=== PATIENT | male | born 1985 | race Hispanic/Latino ===

== ENCOUNTER 2020-01-05 16:59 | Emergency (ER) | payer OTHER ==
[2020-01-05] MEDS ORDERED: LIDOCAINE HCL 1% 20 ML VIAL ONE (18:09)
[2020-01-05] MEDS ORDERED: PREDNISONE 20 MG TABLET ONE (18:09)
[2020-01-05] MEDS ORDERED: ALBUTEROL INHALER 90MCG/INH IH ONE (18:09)
[2020-01-05 18:20] LABS: BASOPHILS % (AUTO) 0.7 % (0.0-5.0); EOSINOPHILS % (AUTO) 1.6 % (0.0-8.0); HEMATOCRIT 46.5 % (42-54); LYMPHOCYTES % (AUTO) 7.7 % (21.0-51.0); MEAN CORPUSCULAR HEMOGLOBIN 29.1 pg (27.0-33.0); MEAN CORPUSCULAR HGB CONC 34.4 g/dL (32.0-36.0); MEAN CORPUSCULAR VOLUME 84.7 fL (79-99); MONOCYTES % (AUTO) 4.5 % (3.0-13.0); PLATELET COUNT (AUTO) 228 K/uL (130-400); RED BLOOD CELL COUNT(AUTO) 5.49 MIL/uL (4.50-6.20); RED CELL DISTRIBUTION WIDTH 12.6 % (11.0-15.5); WHITE BLOOD COUNT (AUTO) 13.3 K/uL (4.8-10.8)
[2020-01-05 18:49] LABS: CREATININE 1.4 mg/dL (0.5-1.5); POTASSIUM 3.8 mmol/L (3.5-5.1)
[2020-01-05 18:54] LABS: BILIRUBIN,TOTAL 0.2 mg/dL (0.2-1.0); TOTAL PROTEIN, SERUM 5.9 g/dL (6.0-8.3)
== END 2020-01-05 19:50 | disposition home or self-care (01) ==
LOC: EDH 16:59
DX: J20.9 Acute bronchitis, unspecified (principal); I80.8 Phlebitis and thrombophlebitis of other sites; Z20.828 Contact with and (suspected) exposure to other viral communicable diseases; J45.909 Unspecified asthma, uncomplicated
CPT/HCPCS: 36415; 71045; 80053; 84484; 85025; 87040 ×2; 87426; 87804 ×2; 93005; 99285; U0003

== ENCOUNTER 2020-01-09 00:43 | Inpatient (IN) | payer SELFPAY ==
[~2020-01-09] VITALS: Ht 167 cm; Wt 73.5 kg
[2020-01-09 01:05] LABS: BASOPHILS % (AUTO) 0.8 % (0.0-5.0); EOSINOPHILS % (AUTO) 2.5 % (0.0-8.0); HEMATOCRIT 43.8 % (42-54); LYMPHOCYTES % (AUTO) 21.8 % (21.0-51.0); MEAN CORPUSCULAR HGB CONC 34.2 g/dL (32.0-36.0); MEAN CORPUSCULAR VOLUME 84.7 fL (79-99); MONOCYTES % (AUTO) 10.7 % (3.0-13.0); NEUTROPHILS % (AUTO) 63.6 % (40.0-77.0); PLATELET COUNT (AUTO) 226 K/uL (130-400); RED BLOOD CELL COUNT(AUTO) 5.17 MIL/uL (4.50-6.20); RED CELL DISTRIBUTION WIDTH 12.6 % (11.0-15.5); WHITE BLOOD COUNT (AUTO) 8.5 K/uL (4.8-10.8)
[2020-01-09 01:13] LABS: INR 0.88 (0.85-1.15); PARTIAL THROMBOPLASTIN TIME 27.7 SEC (26.3-35.5); PROTHROMBIN TIME 9.5 SEC (9.6-11.6)
[2020-01-09] MEDS ORDERED: CLINDAMYCIN 900 MG/D5% WATER 50 ML IV ONE (01:13)
[2020-01-09] MEDS ORDERED: KETOROLAC TROMETHAMINE 30MG/ML ONE (01:13)
[2020-01-09 01:19] LABS: CREATININE 1.4 mg/dL (0.5-1.5); POTASSIUM 3.8 mmol/L (3.5-5.1)
[2020-01-09 01:23] LABS: ALBUMIN 2.7 g/dL (3.5-5.0); BILIRUBIN,TOTAL 0.3 mg/dL (0.2-1.0); TOTAL PROTEIN, SERUM 5.8 g/dL (6.0-8.3)
[2020-01-09] MEDS ORDERED: ENOXAPARIN SODIUM 80 MG/0.8 ML SQ ONE (02:01)
[2020-01-09] MEDS ORDERED: CLINDAMYCIN 600 MG/D5% WATER 50 ML IV SCH (04:15)
[2020-01-09] MEDS ORDERED: ONDANSETRON HCL 4 MG/2 ML VIAL IV PRN (04:15)
[2020-01-09] MEDS ORDERED: NITROGLYCERIN 0.4 MG SL TAB SL PRN (06:15)
[2020-01-09 08:19] LABS: BASOPHILS % (AUTO) 1.2 % (0.0-5.0); EOSINOPHILS % (AUTO) 4.2 % (0.0-8.0); HEMATOCRIT 42.5 % (42-54); LYMPHOCYTES % (AUTO) 38.7 % (21.0-51.0); MEAN CORPUSCULAR HEMOGLOBIN 29.3 pg (27.0-33.0); MEAN CORPUSCULAR HGB CONC 34.8 g/dL (32.0-36.0); MEAN CORPUSCULAR VOLUME 84.2 fL (79-99); MONOCYTES % (AUTO) 10.5 % (3.0-13.0); NEUTROPHILS % (AUTO) 44.6 % (40.0-77.0); PLATELET COUNT (AUTO) 193 K/uL (130-400); RED BLOOD CELL COUNT(AUTO) 5.05 MIL/uL (4.50-6.20); RED CELL DISTRIBUTION WIDTH 12.6 % (11.0-15.5)
[2020-01-09 08:52] LABS: ALANINE AMINOTRANSFERASE 131 U/L (12-78); ALBUMIN 2.3 g/dL (3.5-5.0); ASPARTATE AMINOTRANSFERASE 44 U/L (10-37); BILIRUBIN,DIRECT 0.1 mg/dL (0.0-0.3); BILIRUBIN,TOTAL 0.3 mg/dL (0.2-1.0); CARBON DIOXIDE 28 mmol/L (21-32); CHLORIDE 104 mmol/L (101-111); CREATINE KINASE, TOTAL 22 U/L (21-232); CREATININE 1.2 mg/dL (0.5-1.5); GLOMERULAR FILTR. RATE CALC 74 mL/min (>60); GLUCOSE,RANDOM 158 mg/dL (70-105); MYOGLOBIN 43 ng/mL (10-92); POTASSIUM 3.3 mmol/L (3.5-5.1); SODIUM SERUM 139 mmol/L (136-145); TOTAL PROTEIN, SERUM 5.7 g/dL (6.0-8.3); TROPONIN I < 0.04 ng/mL (0.00-0.06); UREA NITROGEN, BLOOD 12 mg/dL (7-18)
[2020-01-09] MEDS: FAMOTIDINE 20MG TAB 20 MG TAB PO SCH ×2 (09:00→19:54)
[2020-01-09] MEDS: ENOXAPARIN SODIUM 40 MG/0.4 ML SYRINGE SQ SCH ×2 (09:00→19:53)
[2020-01-09] MEDS ORDERED: ENOXAPARIN SODIUM 40 MG/0.4 ML SYRINGE SQ ONE (10:24)
[2020-01-09] MEDS ORDERED: FAMOTIDINE 20MG TAB 20 MG TAB ONE (10:24)
[2020-01-09] MEDS ORDERED: SODIUM CHLORIDE 0.9% 50 ML IV ONE (10:39)
[2020-01-09] MEDS ORDERED: CEFTRIAXONE SODIUM 1 GM ONE (10:39)
[2020-01-09] MEDS: CEFTRIAXONE SODIUM 1 GM IVP SCH ×2 (10:56→22:10)
--- NOTE | 2020-01-09 11:10 | NUR ---
REPORT RECEIVED FROM VIVIANA AN (ED). PATIENT ADMITTED FOR LUE CELLULITIS AND THROMBOSIS UNDER DR. JONES SERVICES. PATIENT S/P ER VISIT ON 01/05/20 FOR LUE SWELLING. PATIENT STABLE AT THIS TIME.
[2020-01-09] MEDS: KETOROLAC TROMETHAMINE 15MG/ML IV PRN ×2 (12:25→18:39)
[2020-01-09 12:50] VITALS: BP 94/56
[2020-01-09 16:00] VITALS: BP 104/57
[2020-01-09 18:28] LABS: APPEARANCE,URINE Clear (CLEAR); BILIRUBIN,URINE Negative (NEGATIVE); COLOR,URINE Yellow (YELLOW); GLUCOSE, URINE (UA) Negative (NEGATIVE); KETONES,URINE Negative (NEGATIVE); LEUKOCYTE ESTERASE ,URINE Negative (NEGATIVE); NITRATE,URINE Negative (NEGATIVE); OCCULT BLOOD,URINE Negative (NEGATIVE); PH,URINE 6.5 (5.0-8.0); PROTEIN,URINE Negative (NEGATIVE)
[2020-01-09 18:36] LABS: AMPHET/METH SCREEN,URINE NEGATIVE (NEGATIVE); BARBITURATE SCREEN, URINE NEGATIVE (NEGATIVE); BENZODIAZEPINES SCREEN,URINE NEGATIVE (NEGATIVE); CANNABINOID SCREEN,URINE NEGATIVE (NEGATIVE); COCAINE SCREEN,URINE POSITIVE (NEGATIVE); OPIATE SCREEN,URINE NEGATIVE (NEGATIVE); PHENCYCLIDINE SCREEN,URINE NEGATIVE (NEGATIVE)
[2020-01-09] MEDS ORDERED: ALBU8.5H8 IH (19:46)
[2020-01-09] MEDS ORDERED: PRED20TA3 PO (19:46)
[2020-01-09] MEDS ORDERED: IBUP-2070 PO (19:46)
[2020-01-09] MEDS ORDERED: ACET1TAB25 PO (19:46)
[2020-01-09] MEDS ORDERED: CEPH-578 PO (19:46)
[2020-01-09] MEDS ORDERED: ALBUTEROL INHALER 90MCG/INH IH PRN (20:00)
[2020-01-09 20:35] VITALS: BP 135/95
[2020-01-10] VITALS (7 sets, daily range): BP systolic 99–124; BP diastolic 64–87
[2020-01-10] MEDS: KETOROLAC TROMETHAMINE 15MG/ML IV PRN ×3 (00:09→17:59)
[2020-01-10 06:08] LABS: EOSINOPHILS % (AUTO) 3.5 % (0.0-8.0); HEMATOCRIT 42.7 % (42-54); LYMPHOCYTES % (AUTO) 33.2 % (21.0-51.0); MEAN CORPUSCULAR HEMOGLOBIN 28.7 pg (27.0-33.0); MEAN CORPUSCULAR VOLUME 84.4 fL (79-99); NEUTROPHILS % (AUTO) 48.4 % (40.0-77.0); PLATELET COUNT (AUTO) 242 K/uL (130-400); RED BLOOD CELL COUNT(AUTO) 5.06 MIL/uL (4.50-6.20); RED CELL DISTRIBUTION WIDTH 12.5 % (11.0-15.5); WHITE BLOOD COUNT (AUTO) 7.8 K/uL (4.8-10.8)
[2020-01-10 06:23] LABS: CREATININE 1.1 mg/dL (0.5-1.5); POTASSIUM 3.9 mmol/L (3.5-5.1)
[2020-01-10] MEDS: FAMOTIDINE 20MG TAB 20 MG TAB PO SCH ×2 (09:39→20:04)
[2020-01-10] MEDS: ENOXAPARIN SODIUM 40 MG/0.4 ML SYRINGE SQ SCH ×2 (09:44→20:04)
[2020-01-10] MEDS ORDERED: VANCOMYCIN PROTOCOL PER PHARMACY IV SCH (09:45)
[2020-01-10] MEDS ORDERED: VANCOMYCIN 1.5 GM in SODIUM CHLORIDE 0.9% 250 ML IV ONE (13:15)
[2020-01-10] MEDS ORDERED: COMPOUND IV REFRIGERATED 1 EACH IVSOLN MISC PRN (13:15)
[2020-01-10] MEDS: CEFTRIAXONE SODIUM 1 GM IVP SCH ×2 (13:39→20:04)
[2020-01-10] MEDS: TRAMADOL HCL 50 MG TABLET PO PRN ×3 (14:28→15:33)
--- NOTE | 2020-01-10 15:34 | NUR ---
INITIAL SW met with patient. He lives with spouse. He has no home services or DME. Patient is able to complete ADL's independently but does not drive. Patient has no PCP. Pharmacy is [facility] on [address] [place] [address] in [place] or [facility] in [place]. DCP is home. Patient has no insurance or benefits. He is not a [place] citizen or legal resident. Patient was provided with community resources for post hospitalization follow up. Patient was also provided with Good RX card for prescriptions and educated on [facility] $4 medication program and [facility] $5 medication program. Patient is being assisted by [employer] for financial matters. Addendum: 01/10/20 at 1540 by MADELYN LOPEZ Amended: Links added.
--- NOTE | 2020-01-10 19:10 | NUR ---
Rec'd notice from nurse Siva Blackman RN that pt's room smells like cigarette smoke. Notified TONI Chanel NP, water resources technical officer Akira, and Baker Meme.
[2020-01-10] MEDS: VANCOMYCIN 750MG + NS 250 ML IV SCH ×2 (20:04)
[2020-01-11] MEDS: KETOROLAC TROMETHAMINE 15MG/ML IV PRN ×3 (03:56→21:05)
[2020-01-11] MEDS: VANCOMYCIN 750MG + NS 250 ML IV SCH ×6 (03:57→20:48)
[2020-01-11 04:13] VITALS: BP 140/93
[2020-01-11 08:06] VITALS: BP 112/71
[2020-01-11] MEDS: CEFTRIAXONE SODIUM 1 GM IVP SCH ×2 (10:01→20:49)
[2020-01-11] MEDS: FAMOTIDINE 20MG TAB 20 MG TAB PO SCH ×2 (10:01→20:49)
[2020-01-11] MEDS: ENOXAPARIN SODIUM 40 MG/0.4 ML SYRINGE SQ SCH ×2 (10:02→20:49)
[2020-01-11 11:00] VITALS: BP 92/56
[2020-01-11 16:00] VITALS: BP 118/76
[2020-01-11 19:29] VITALS: BP 120/68
[2020-01-12] VITALS (7 sets, daily range): BP systolic 92–126; BP diastolic 43–85
[2020-01-12 02:09] LABS: HEPATITIS A ANTIBODY IGM Negative (Negative); HEPATITIS B CORE IGM Negative (Negative); HEPATITIS Bs ANTIGEN SCREEN P Negative (Negative)
[2020-01-12 04:24] LABS: BASOPHILS % (AUTO) 1.3 % (0.0-5.0); EOSINOPHILS % (AUTO) 4.2 % (0.0-8.0); HEMATOCRIT 41.8 % (42-54); LYMPHOCYTES % (AUTO) 42.9 % (21.0-51.0); MEAN CORPUSCULAR HEMOGLOBIN 28.8 pg (27.0-33.0); MEAN CORPUSCULAR VOLUME 84.8 fL (79-99); MONOCYTES % (AUTO) 8.3 % (3.0-13.0); NEUTROPHILS % (AUTO) 41.3 % (40.0-77.0); PLATELET COUNT (AUTO) 302 K/uL (130-400); RED BLOOD CELL COUNT(AUTO) 4.93 MIL/uL (4.50-6.20); RED CELL DISTRIBUTION WIDTH 12.4 % (11.0-15.5); WHITE BLOOD COUNT (AUTO) 7.9 K/uL (4.8-10.8)
[2020-01-12 04:34] LABS: CARBON DIOXIDE 27 mmol/L (21-32); CHLORIDE 106 mmol/L (101-111); CREATININE 1.1 mg/dL (0.5-1.5); GLOMERULAR FILTR. RATE CALC 82 mL/min (>60); GLUCOSE,RANDOM 124 mg/dL (70-105); SODIUM SERUM 139 mmol/L (136-145); UREA NITROGEN, BLOOD 13 mg/dL (7-18)
[2020-01-12] MEDS: VANCOMYCIN 750MG + NS 250 ML IV SCH ×6 (04:38→20:13)
[2020-01-12] MEDS: CEFTRIAXONE SODIUM 1 GM IVP SCH ×2 (10:09→23:02)
[2020-01-12] MEDS: FAMOTIDINE 20MG TAB 20 MG TAB PO SCH ×2 (10:09→20:12)
[2020-01-12] MEDS: ENOXAPARIN SODIUM 40 MG/0.4 ML SYRINGE SQ SCH ×2 (10:10→20:13)
[2020-01-12] MEDS: KETOROLAC TROMETHAMINE 15MG/ML IV PRN ×2 (10:12→20:14)
[2020-01-12] MEDS: TRAMADOL HCL 50 MG TABLET PO PRN (13:45)
--- NOTE | 2020-01-12 20:00 | NUR ---
FATHER Father in the room wanting update on pt.He said,"He's kind of slow".Pt and father updated on antibiotic treatment.Questions answered and appeared satisfied.Father knows Md rounds during the day for update on pt.s condition.
--- NOTE | 2020-01-12 20:14 | NUR ---
PAIN Toradol given for c/o of pain.
--- NOTE | 2020-01-12 21:14 | NUR ---
MED EFFECT Pt denies pain.
[2020-01-13 04:00] VITALS: BP 105/65
[2020-01-13] MEDS: VANCOMYCIN 750MG + NS 250 ML IV SCH ×6 (04:16→21:15)
[2020-01-13 06:30] LABS: CARBON DIOXIDE 28 mmol/L (21-32); CHLORIDE 106 mmol/L (101-111); CREATININE 1.2 mg/dL (0.5-1.5); GLOMERULAR FILTR. RATE CALC 74 mL/min (>60); GLUCOSE,RANDOM 92 mg/dL (70-105); POTASSIUM 4.7 mmol/L (3.5-5.1); SODIUM SERUM 139 mmol/L (136-145); UREA NITROGEN, BLOOD 12 mg/dL (7-18)
[2020-01-13 08:01] VITALS: BP 97/73
[2020-01-13] MEDS: KETOROLAC TROMETHAMINE 15MG/ML IV PRN ×3 (08:02→19:59)
[2020-01-13] MEDS: ENOXAPARIN SODIUM 40 MG/0.4 ML SYRINGE SQ SCH ×2 (10:23→21:19)
[2020-01-13] MEDS: FAMOTIDINE 20MG TAB 20 MG TAB PO SCH ×2 (10:23→21:14)
[2020-01-13 11:32] VITALS: BP 106/65
[2020-01-13] MEDS: CEFTRIAXONE SODIUM 1 GM IVP SCH ×2 (12:05→21:19)
[2020-01-13 16:20] VITALS: BP 109/77
[2020-01-13 20:00] VITALS: BP 121/67
[2020-01-13] MEDS: TRAMADOL HCL 50 MG TABLET PO PRN (21:29)
[2020-01-13 23:55] VITALS: BP 106/56
[2020-01-14] MEDS: KETOROLAC TROMETHAMINE 15MG/ML IV PRN (01:42)
[2020-01-14 04:00] VITALS: BP_SYST 124; BP_SYST 135; BP_DIAS 72; BP_DIAS 77
[2020-01-14] MEDS: VANCOMYCIN 750MG + NS 250 ML IV SCH ×6 (05:43→21:57)
[2020-01-14 07:30] VITALS: BP 80/44
[2020-01-14] MEDS: FAMOTIDINE 20MG TAB 20 MG TAB PO SCH ×2 (09:17→21:56)
[2020-01-14] MEDS: ENOXAPARIN SODIUM 40 MG/0.4 ML SYRINGE SQ SCH ×2 (09:18→21:56)
[2020-01-14] MEDS: TRAMADOL HCL 50 MG TABLET PO PRN ×3 (09:22→22:39)
[2020-01-14 11:00] VITALS: BP 88/48
[2020-01-14] MEDS: CEFTRIAXONE SODIUM 1 GM IVP SCH ×2 (11:59→22:01)
[2020-01-14 16:00] VITALS: BP 110/64
[2020-01-14 20:33] VITALS: BP 110/75
[2020-01-14] MEDS: IBUPROFEN 600 MG TABLET PO PRN (22:02)
[2020-01-14 23:40] VITALS: BP 121/73
--- NOTE | 2020-01-15 | NUR ---
ROUNDS NO C/O PAIN AT THIS TIME. PT DID ASK FOR WARM COMPRESS FOR ARM. PLACED WARM COMPRESS ON AC SPACE TO LEFT UE. WILL CONTINUE TO MONITOR. ENCOURAGED PT TO USE CALL LIGHT WHEN NEEDING ASSISTANCE-PT VERBALIZED IN AGREEMENT
[2020-01-15] MEDS: VANCOMYCIN 750MG + NS 250 ML IV SCH ×4 (04:16→12:26)
[2020-01-15] MEDS: IBUPROFEN 600 MG TABLET PO PRN (04:17)
[2020-01-15 04:33] VITALS: BP 107/56
--- NOTE | 2020-01-15 06:15 | NUR ---
tele monitor CALLED TO REPORT PT IN SINUS BRADYCARDIA [address]ATIONS SINCE 511. ECG WAS DONE AND SHOWED SINUS BRADYCARDIA WITH SINUS ARRHYTHMIA, EARLY REPOLARIZATION. PAGED DRIVE WORKER TO NOTIFY- PENDING CB
[2020-01-15 08:00] VITALS: BP 92/52
[2020-01-15] MEDS: FAMOTIDINE 20MG TAB 20 MG TAB PO SCH (09:15)
[2020-01-15] MEDS: ENOXAPARIN SODIUM 40 MG/0.4 ML SYRINGE SQ SCH (09:15)
[2020-01-15 09:30] LABS: CARBON DIOXIDE 30 mmol/L (21-32); CHLORIDE 105 mmol/L (101-111); CREATINE KINASE, TOTAL 24 U/L (21-232); CREATININE 1.3 mg/dL (0.5-1.5); GLOMERULAR FILTR. RATE CALC 68 mL/min (>60); GLUCOSE,RANDOM 107 mg/dL (70-105); MYOGLOBIN 36 ng/mL (10-92); POTASSIUM 4.1 mmol/L (3.5-5.1); SODIUM SERUM 141 mmol/L (136-145); TROPONIN I < 0.04 ng/mL (0.00-0.06); UREA NITROGEN, BLOOD 15 mg/dL (7-18)
[2020-01-15 11:19] VITALS: BP 87/55
[2020-01-15 11:27] VITALS: BP 113/58
[2020-01-15] MEDS: CEFTRIAXONE SODIUM 1 GM IVP SCH (12:21)
[2020-01-15] MEDS: TRAMADOL HCL 50 MG TABLET PO PRN (12:26)
[2020-01-15 16:00] VITALS: BP 116/67
--- NOTE | 2020-01-15 17:51 | NUR ---
D/C PT IS AAOX4 LEFT VIA WHEELCHAIR IN PVT CAR, VS STABLE NO COMPLICATIONS UPON D/C. RX SCRIPT GIVEN TO PATIENT AND IS AWARE TO F/U WITH PRIMARY DR. IN 2-3 DAYS.
== END 2020-01-15 18:00 | disposition home or self-care (01) | DRG 300 ==
LOC: EDH 00:43 → EDHIP 00:44 → 3CH 10:55
PROVIDERS: ADMIT Internal Medicine; ATTEND Internal Medicine
DX: I80.8 Phlebitis and thrombophlebitis of other sites (principal); L03.114 Cellulitis of left upper limb; F14.10 Cocaine abuse, uncomplicated; F17.210 Nicotine dependence, cigarettes, uncomplicated; J45.909 Unspecified asthma, uncomplicated; F32.9 Major depressive disorder, single episode, unspecified; R07.9 Chest pain, unspecified
CPT/HCPCS: 36415; 71045; 73200; 76705; 76882; 80048; 80053; 80074; 80202; 80305; 81003; 82248; 82550; 83605; 83690; 83874; 84145; 84484; 85025; 85610; 85730; 86140; 87040; 93005; 93971; G0378; J0696; J1650; J1885; J3370; J3490; J7050